=== PATIENT | female | born 1995 | race Caucasian/White ===

== ENCOUNTER → 2020-11-02 16:06 | Outpatient (CLI) | payer OTHER, SELFPAY | PROVIDERS: PCP Nurse Practitioner; Visit Provider Nurse Practitioner | DX: R53.1 Weakness (principal) | CPT/HCPCS: 93225; 93226 ==

== ENCOUNTER 2022-01-29 03:45 | Emergency (ER) | payer OTHER, SELFPAY ==
[2022-01-29] VITALS (7 sets, daily range): BP systolic 116–136; BP diastolic 64–86; PULSE 72–85; RESP 17–20; TEMP 36.8–36.9; O2SAT 96–100; BMI 26.4
--- NOTE | 2022-01-29 03:45 | PC.NURSE ---
Pt requests to go to [facility] in [place]. Called and s/w Mark and gave him pt info. states to fax records to [phone].
[2022-01-29 04:11] LABS: Coronavirus 19, PCR Not Detected (NotDetected); Influenza A, PCR Not Detected (NotDetected); Influenza B, PCR Not Detected (NotDetected); Microscopic, Urine URINE MICROSCOPIC (MICROSCOPIC)
[2022-01-29 04:15] LABS: Appearance,Urine CLEAR (Clear); Basophils # 0.2 K/mm3 (0-0.2); Basophils % 2.9 % (0.1-2.0); Bilirubin,Urine Negative (Negative); Blood, Urine 2+ (Negative); Color,Urine YELLOW (Yellow); Eosinophils # 0.1 K/mm3 (0.0-0.4); Eosinophils % 2.1 % (0.1-12.0); Glucose,Urine (UA) Negative (Negative); Hematocrit 45.7 % (37.0-47.0); Hemoglobin 14.9 g/dL (12.2-16.2); Ketones,Urine Negative (Negative); Leukocyte Esterase,Urine Negative (Negative); Lymphocytes # 1.7 K/mm3 (0.7-4.5); Mean Corpuscular HGB Conc 32.7 g/dL (31.8-35.4); Mean Corpuscular Hemoglobin 30.9 pg (27.0-31.2); Mean Corpuscular Volume 94.8 fl (81-99); Mean Platelet Volume 8.4 fl (7.4-10.4); Monocytes # 0.3 K/mm3 (0.1-1.0); Monocytes % 4.5 % (1.7-9.3); Neutrophils # 3.3 K/mm3 (1.8-7.8); Neutrophils % 59.6 % (37.0-80.0); Nitrate,Urine Negative (Negative); Platelet Count 387 K/mm3 (142-424); Protein,Urine Negative (Negative); Red Blood Count 4.82 M/mm3 (4.20-5.40); Red Cell Distribution Width 12.7 % (11.5-17.5); Specific Gravity, Urine 1.025 (1.005-1.030); Urobilinogen,Urine 0.2 EU/dl (0.2); White Blood Count 5.6 K/mm3 (4.8-10.8)
[2022-01-29 04:19] LABS: Chloride 102 mmol/L (98-107); Sodium 140 mmol/L (136-145)
[2022-01-29 04:20] LABS: Potassium 4.1 mmoL/L (3.5-5.1)
[2022-01-29 04:22] LABS: Alanine Aminotransferase 23 U/L (12-78); Alkaline Phosphatase 83 U/L (38-126); Anion Gap 14.1 mEq/L (5-15); Aspartate Amino Transferase 36 U/L (14-36); Blood Urea Nitrogen 11 mg/dl (7-17); Calcium 8.8 mg/dl (8.4-10.2); Carbon Dioxide 28 mmol/L (22.0-30.0); Creatinine Clearance Estimated 121 mL/min (50-200); Estimated Glomerular Filt Rate 100 ml/min (>60); GFR (African American) 121 ML/MIN (>60); Glucose 94 mg/dl (74-100)
[2022-01-29 04:23] LABS: Albumin Level 4.8 g/dl (3.5-5.0); Albumin/Globulin Ratio 1.5 (1.1-1.8); Globulin 3.1 g/dL (1.3-3.2); Total Protein,Serum 7.9 g/dl (6.3-8.2)
[2022-01-29 04:24] LABS: Acetaminophen < 10 ug/ml (10-30); Bilirubin,Total < 0.1 mg/dl (0.2-1.3); Ethyl Alcohol < 10 mg/dl (0-10); Salicylate < 1.0 mg/dL (2.0-20.0)
--- NOTE | 2022-01-29 04:26 | HMH.EDPSYCH ---
Discharge Plan Disposition Patient Disposition: Home, Self-Care Chief Complaint: Psychiatric Symptoms Prescriptions Prescriptions: No Action escitalopram oxalate 10 mg tablet 7.5 mg PO DAILY Referrals Follow up/Referrals: Marietta Sanchez APRN [Primary Care Provider] - See instructions Clinical Impressions Clinical Impression: Major depressive disorder Instructions Patient Instructions: Depression Discharge ED Provider: Ari Chicas Psych HPI General Chief Complaint: Psychiatric Symptoms Stated Complaint: sadness Time Seen by Provider: 01/29/22 04:26 Mode of Arrival: EMS Source of Information: Patient, EMS and Medical Record Limitations: No Limitations Description of Symptoms (Recalled from ER Triage Doc. by RN): Pt c/o harming herself by cutting her right forearm and punching self in face. States she has thought about harming herself a lot . Denies wanting to , though she has in the past. Admitted to [facility] about 3 and half months ago for suidcide ideation. History of Present Illness HPI Narrative: pt presents with depression and self abuse with hx of same behavior in past - MD complaint: feels depressed Onset (ago): day(s) Duration: changing over time History of same: Yes Context: significant life stressor Associated psychiatric symptoms: depression Associated symptoms: denies other symptoms Treatments prior to arrival: none Related Data Home Medications Medication Instructions Recorded Confirmed escitalopram oxalate 10 mg tablet 7.5 mg PO DAILY depressive disorder 01/29/22 01/29/22 Allergies Allergy/AdvReac Type Severity Reaction Status Date / Time No Known Allergies Allergy Verified 01/10/22 15:02 [facility] Medical History (Updated 01/29/22 @ 07:25 by Ari Chicas MD) Generalized anxiety disorder History of concussion Irritable bowel syndrome Major depressive disorder Family History (Updated 01/18/22 @ 09:06 by Olamide Short APRN) Alcoholism Grandfather FHx: mental illness Mother Father Social History (Updated 01/10/22 @ 15:24 by Olamide Short APRN) Smoking Status: Current every day smoker tobacco type: cigarettes packs per day: 1 pack-years: 5 quit status: considering quitting second hand exposure: No alcohol intake: current counseling given: No substance use type: marijuana counseling given: No counseling provided: none current occupational status: employed Travel in the last 8 weeks: None adopted: No caregiver/support person: No foster care: No household members: none housing: house lives independently: Yes marital status: single number of children: 0 number of grandchildren: 0 education level: high school service: No senior living: No 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 pets and animals: Yes (3 cats) pets and animals: cat(s) Hx Recent Travel: No physical activity: none alan/quaker: None special alan needs: No ROS Obtained: Yes All systems reviewed & no additional complaints except as documented Physical Exam General General appearance: alert Head Head exam: normocephalic Eye Eye exam: Present PERRL and EOMI ENT ENT exam: Present mucous membranes moist Neck Neck exam: Present trachea midline Respiratory Respiratory exam: Present normal lung sounds bilaterally Cardiovascular Cardiovascular exam: Present regular rate Abdominal Exam Abdominal exam: Present soft Neurological Exam Neurological exam: Present alert, oriented X3 and CN II-XII intact Psychiatric Psychiatric exam: Present depressed; Absent suicidal ideation Skin Skin exam: Absent rash Medical Decision Making Medical Records Medical records reviewed: Yes I reviewed the patient's medical records. [facility] Inquiry Pt receiving controlled substance: No Vital Signs: 01/29/22 03:45 Temperature 98.3 F Temperature Source Oral Pulse Rate [Right] 85 Respiratory Rate 17 Blood Pressu
[2022-01-29 04:28] LABS: Barbiturates Screen,Urine Negative ng/ml (<200)
[2022-01-29 04:29] LABS: Amphetamine/Metha Screen,Urine Negative ng/ml (<1000); Benzodiazepines Screen,Urine Negative ng/ml (<200)
[2022-01-29 04:30] LABS: Methadone Screen,Urine Negative ng/ml (<300)
[2022-01-29 04:31] LABS: Cannabinoid Screen,Urine Negative ng/ml (<50); Cocaine Screen,Urine Negative ng/ml (<300)
[2022-01-29 04:32] LABS: Opiate Screen,Urine Negative ng/ml (<300)
[2022-01-29 04:33] LABS: Phencyclidine Screen,Urine Negative ng/ml (<25)
[2022-01-29 04:42] LABS: WBC,Urine Occasional #/hpf (0-3)
--- NOTE | 2022-01-29 04:42 | ECG_ITS ---
APPROVED REPORT Exam: Resting ECG HR:70 bpm ECG Measurements Heart Rate 70 AXES DE 147 P 49 QRSd 84 QRS 87 QT 366 T 62 QTc 386 Conclusion SINUS RHYTHM NORMAL ECG UNCONFIRMED REPORT Electronically signed by : Stuart Servin MD 01/31/2022 16:00:46
[2022-01-29 04:43] LABS: Bacteria,Urine Trace /lpf; Mucus,Urine 1+ /lpf
--- NOTE | 2022-01-29 05:17 | PC.NURSE ---
@ [phone] - faxed records to the [facility]. @[id number] - report received the fax went through successful
--- NOTE | 2022-01-29 05:34 | PC.NURSE ---
Miguelito with [facility] called for an update and asked to s/w pt for a phone interview. pt agreed.
--- NOTE | 2022-01-29 06:04 | PC.NURSE ---
Pt completed call with Miguelito [facility]
--- NOTE | 2022-01-29 06:30 | PC.NURSE ---
Obtained breakfast tray for pt
--- NOTE | 2022-01-29 07:02 | PC.NURSE ---
Miguelito from [facility] stated that pt does not meet criteria for inpatient hospitalization. States she can do partial inpatient or telehealth for 2-4 wk. Pt elected to do telehealth. Received crisis safety plan and Telepsych information. pt signed and this RN submitted back to [facility]. Confirmation report received.
--- NOTE | 2022-01-29 07:07 | PC.NURSE ---
Pt's states a family member will be on here to pick her up in roughly 30-40 min.
--- NOTE | 2022-01-29 07:20 | PC.NURSE ---
s/w Sara @ [facility] and she stated that pt is ok tod/c and they would call her today to set everything up and treatment. Pt also given information on [facility] office
--- NOTE | 2022-01-29 07:49 | PC.NURSE ---
pt resting denies any c/o at present
--- NOTE | 2022-01-29 08:24 | PC.NURSE ---
called and informed them of pt's admission to ed and plan to d/c pt to family.
== END 2022-01-29 08:26 | disposition home or self-care (01) ==
PROVIDERS: Emergency Provider Emergency Medicine; PCP Nurse Practitioner
DX: F32.9 Major depressive disorder, single episode, unspecified (principal); Z91.51 Personal history of suicidal behavior; Z79.899 Other long term (current) drug therapy; F41.9 Anxiety disorder, unspecified; K58.9 Irritable bowel syndrome, unspecified; Z72.0 Tobacco use; F12.980 Cannabis use, unspecified with anxiety disorder
CPT/HCPCS: 80053; 80305; 80329; 81001; 85025; 93005; 99284; C9803; U0003; U0005

== ENCOUNTER 2022-02-22 02:27 | Emergency (ER) | payer OTHER, SELFPAY ==
[2022-02-22 02:27] VITALS: BP 128/78; PULSE 81; RESP 16; TEMP 36.9; O2SAT 96; BMI 25.1
--- NOTE | 2022-02-22 02:34 | ECG_ITS ---
APPROVED REPORT Exam: Resting ECG HR:81 bpm ECG Measurements Heart Rate 81 AXES IA 131 P 63 QRSd 90 QRS 94 QT 342 T 69 QTc 379 Conclusion SINUS RHYTHM BORDERLINE RIGHT AXIS DEVIATION [QRS AXIS > 90] BORDERLINE ECG UNCONFIRMED REPORT Electronically signed by : Stuart Servin MD 02/22/2022 12:29:54
[2022-02-22 03:00] VITALS: BP 139/83; PULSE 91; O2SAT 98
[2022-02-22 03:12] LABS: Coronavirus 19, PCR Not Detected (NotDetected); Influenza A, PCR Not Detected (NotDetected); Influenza B, PCR Not Detected (NotDetected)
[2022-02-22 03:30] VITALS: BP 122/67; PULSE 65; O2SAT 98
[2022-02-22 03:31] LABS: Basophils # 0.1 K/mm3 (0-0.2); Basophils % 1.7 % (0.1-2.0); Eosinophils # 0.2 K/mm3 (0.0-0.4); Eosinophils % 2.4 % (0.1-12.0); Hematocrit 42.9 % (37.0-47.0); Hemoglobin 14.3 g/dL (12.2-16.2); Lymphocytes % 31.9 % (10-50); Mean Corpuscular HGB Conc 33.3 g/dL (31.8-35.4); Mean Corpuscular Hemoglobin 30.9 pg (27.0-31.2); Mean Corpuscular Volume 92.9 fl (81-99); Mean Platelet Volume 8.5 fl (7.4-10.4); Monocytes # 0.3 K/mm3 (0.1-1.0); Monocytes % 4.6 % (1.7-9.3); Neutrophils # 3.7 K/mm3 (1.8-7.8); Neutrophils % 59.4 % (37.0-80.0); Platelet Count 320 K/mm3 (142-424); Red Blood Count 4.62 M/mm3 (4.20-5.40); Red Cell Distribution Width 13.1 % (11.5-17.5); White Blood Count 6.1 K/mm3 (4.8-10.8)
[2022-02-22 03:37] LABS: Chloride 103 mmol/L (98-107); Potassium 3.7 mmoL/L (3.5-5.1); Sodium 138 mmol/L (136-145)
[2022-02-22 03:39] LABS: Blood Urea Nitrogen 6 mg/dl (7-17); Creatinine Clearance Estimated 161 mL/min (50-200); Estimated Glomerular Filt Rate 148 ml/min (>60); GFR (African American) 179 ML/MIN (>60)
[2022-02-22 03:40] LABS: Anion Gap 13.7 mEq/L (5-15); Carbon Dioxide 25 mmol/L (22.0-30.0); Glucose 91 mg/dl (74-100)
[2022-02-22 03:45] LABS: Acetaminophen < 10 ug/ml (10-30); Ethyl Alcohol < 10 mg/dl (0-10); Salicylate < 1.0 mg/dL (2.0-20.0)
--- NOTE | 2022-02-22 03:53 | HMH.EDGENADL ---
Discharge Plan Disposition Patient Disposition: Home, Self-Care Condition: Good Chief Complaint: Psychiatric Symptoms Prescriptions Prescriptions: No Action escitalopram oxalate 10 mg tablet 7.5 mg PO DAILY Referrals Follow up/Referrals: Marietta Sanchez APRN [Primary Care Provider] - See instructions Activity Restrictions/Add. Instructions Additional Instructions/Restrictions: Recommend presenting to try to arrange or start [facility] if you have continued desire to have inpatient management of your depression. Otherwise return to the ER for any new or worsening symptoms. Clinical Impressions Clinical Impression: Depression Instructions Patient Instructions: Depression Discharge ED Provider: Onel Dela Cruz General Adult HPI General Chief complaint: Psychiatric Symptoms Stated complaint: SI Time Seen by Provider: 02/22/22 02:38 Mode of Arrival: EMS Limitations: No Limitations Description of Symptoms (Recalled from ER Triage Doc. by RN): pt states that she feels like her medication is not working properly and that she feels like she may harm herself. pt states that she doesnt have a plan but if she were to kill her self it would be a sparatic act. pt states that she has been having these thoughts latley and the pt stated she wants to be monitored while adjusting her medications pt also stated that she ahs not been doing therapy because it is online and it was not benificial to her so she wasnt doing it again History of Present Illness HPI narrative: 26-year-old female presents with complaints of suicidal ideation. States that her medication is not working properly states that she feels like the same as she has in the past as if she may harm herself no specific plan date or method states that if she were to kill herself it would be random. She has been compliant with her medication. Denies drug or alcohol use. She did not call her online crisis line [facility] [employer] because she does not feel like it is helpful. Has no other medical complaints at this time. Currently on escitalopram. Related Data Home Medications Medication Instructions Recorded Confirmed escitalopram oxalate 10 mg tablet 7.5 mg PO DAILY depressive disorder 01/29/22 02/18/22 Allergies Allergy/AdvReac Type Severity Reaction Status Date / Time No Known Allergies Allergy Verified 02/18/22 14:03 [facility] Medical History Generalized anxiety disorder History of concussion Irritable bowel syndrome Major depressive disorder Family History Mother FHx: mental illness Father FHx: mental illness Grandfather Alcoholism Social History Smoking Status: Current every day smoker tobacco type: cigarettes packs per day: 1 pack-years: 5 quit status: considering quitting second hand exposure: No alcohol intake: current counseling given: No substance use type: marijuana counseling given: No counseling provided: none current occupational status: employed Travel in the last 8 weeks: None adopted: No caregiver/support person: No foster care: No household members: none housing: house lives independently: Yes marital status: single number of children: 0 number of grandchildren: 0 education level: high school service: No mcc: No 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
[2022-02-22 04:00] VITALS: BP 138/78; PULSE 91; O2SAT 99
[2022-02-22 04:42] LABS: Urine Pregnancy, HCG Qual. Negative (Negative)
[2022-02-22 04:53] LABS: Benzodiazepines Screen,Urine Negative ng/ml (<200)
[2022-02-22 04:54] LABS: Amphetamine/Metha Screen,Urine Negative ng/ml (<1000); Barbiturates Screen,Urine Negative ng/ml (<200)
[2022-02-22 04:55] LABS: Cannabinoid Screen,Urine Negative ng/ml (<50)
[2022-02-22 04:56] LABS: Cocaine Screen,Urine Negative ng/ml (<300); Methadone Screen,Urine Negative ng/ml (<300)
[2022-02-22 04:57] LABS: Opiate Screen,Urine Negative ng/ml (<300)
[2022-02-22 04:58] LABS: Phencyclidine Screen,Urine Negative ng/ml (<25)
--- NOTE | 2022-02-22 05:56 | PC.NURSE ---
spoke with judge Whaley and emailed petition
--- NOTE | 2022-02-22 06:43 | PC.NURSE ---
Pt is s/w [facility] (Greg Chaves MA) with [facility] via [facility]
--- NOTE | 2022-02-22 07:08 | PC.NURSE ---
Greg Chaevs ([facility]) called [facility] to states pt does not meet criteria for inpatient/involuntary hospitalization. He will fax safety plan to [facility]. Pt would like a try to have someone come take her to [facility] [place].
--- NOTE | 2022-02-22 07:22 | PC.NURSE ---
Pt called her mother and became very upset and they were yelling, cussing, and over the phone. Pt throwing hands in the air and yelling I hate her, I fucking hate her . aware. Pt states i want to go to the [facility] . Safety plan reviewed that [facility] sent.
--- NOTE | 2022-02-22 07:32 | PC.NURSE ---
pt on the phone with her mother screaming and cussing the pt stated she had no ride and a ton of explicits
--- NOTE | 2022-02-22 07:42 | PC.NURSE ---
pt refusing vitals at this time. offered to call care management for transport
[2022-02-22 07:50] VITALS: BP 138/80; PULSE 79; O2SAT 98
--- NOTE | 2022-02-22 08:13 | PC.NURSE ---
called care management for transport for pt. care management states to call [facility]
--- NOTE | 2022-02-22 08:14 | PC.NURSE ---
speaking with [facility] for transport
--- NOTE | 2022-02-22 08:23 | PC.NURSE ---
[facility] states they will be here in approx 30-45 minutes. reservation number from [facility] is [phone]
--- NOTE | 2022-02-22 08:42 | PC.NURSE ---
pt eating breakfast at this time
[2022-02-22 10:04] VITALS: BP 134/84; PULSE 81; RESP 18; TEMP 36.9; O2SAT 98
== END 2022-02-22 10:04 | disposition home or self-care (01) ==
PROVIDERS: Emergency Provider Student in an Organized Health Care Education/Training Program; PCP Nurse Practitioner
DX: F32.A Depression, unspecified (principal)
CPT/HCPCS: 80048; 80305; 80329; 81025; 85025; 93005; 99282; C9803; U0003; U0005

== ENCOUNTER → 2022-05-27 13:55 | Outpatient (CLI) | payer OTHER, SELFPAY ==
[2022-05-27 18:49] LABS: Adenovirus,PCR Not Detected (NotDetected); Bordetella Pertussis Not Detected (NotDetected); Chlamydophila Pneumoniae, PCR Not Detected (NotDetected); Coronavirus 19, PCR Not Detected (NotDetected); Coronavirus 229E Not Detected (NotDetected); Coronavirus NL63 Not Detected (NotDetected); Coronavirus OC43 Not Detected (NotDetected); Coronovirus HKU1,PCR Not Detected (NotDetected); Human Metapneumovirus Not Detected (NotDetected); Influenza A, PCR Not Detected (NotDetected); Influenza AH1, 2009 Not Detected (NotDetected); Influenza AH1, PCR Not Detected (NotDetected); Influenza AH3,PCR Not Detected (NotDetected); Influenza B, PCR Not Detected (NotDetected); Mycoplasma Pneumoniae, PCR Not Detected (NotDetected); Parainfluenza 1, PCR Not Detected (NotDetected); Parainfluenza 2, PCR Not Detected (NotDetected); Parainfluenza 3, PCR Not Detected (NotDetected); Parainfluenza 4, PCR Not Detected (NotDetected); Respiratory Syncytial Virus Not Detected (NotDetected); Rhinovirus/Enterovirus Not Detected (NotDetected)
[2022-05-27 19:14] LABS: Basophils # 0.1 K/mm3 (0-0.2); Basophils % 1.9 % (0.1-2.0); Eosinophils # 0.1 K/mm3 (0.0-0.4); Eosinophils % 1.5 % (0.1-12.0); Hemoglobin 13.3 g/dL (12.2-16.2); Lymphocytes # 1.4 K/mm3 (0.7-4.5); Mean Corpuscular HGB Conc 31.6 g/dL (31.8-35.4); Mean Corpuscular Hemoglobin 29.3 pg (27.0-31.2); Mean Corpuscular Volume 92.6 fl (81-99); Mean Platelet Volume 9.3 fl (7.4-10.4); Monocytes # 0.2 K/mm3 (0.1-1.0); Monocytes % 5.5 % (1.7-9.3); Platelet Count 369 K/mm3 (142-424); Red Blood Count 4.53 M/mm3 (4.20-5.40); Red Cell Distribution Width 13.3 % (11.5-17.5); White Blood Count 3.8 K/mm3 (4.8-10.8)
== END ==
PROVIDERS: PCP Nurse Practitioner; Visit Provider Nurse Practitioner
DX: J06.9 Acute upper respiratory infection, unspecified (principal)
CPT/HCPCS: 85025; 87581; 87632; 87798; C9803; U0003; U0005

== ENCOUNTER → 2022-05-31 18:37 | Outpatient (CLI) | payer OTHER, SELFPAY ==
[2022-06-02 13:35] LABS: Rapid Plasma Reagin Ab Titer Non Reactive (NonRea<1:1)
[2022-06-08 05:03] LABS: HIV Screen 4th Generation wRfx Non Reactive
[2022-06-08 05:04] LABS: Hep A Ab, IgM Negative; Hepatitis B Core Antibody IgM Negative; Hepatitis B Surface Antigen Negative; Hepatitis C Antibody <0.1
== END ==
PROVIDERS: PCP Nurse Practitioner; Visit Provider Nurse Practitioner
DX: Z11.3 Encounter for screening for infections with a predominantly sexual mode of transmission (principal); Z11.4 Encounter for screening for human immunodeficiency virus [HIV]
CPT/HCPCS: 80074; 86593; 86703; G0432